=== PATIENT | female | born 1990 | race Two or more races ===

== ENCOUNTER 2022-04-13 10:49 | Emergency (ER) | payer BC ==
[~2022-04-13] VITALS: Ht 167.6 cm; Wt 49.9 kg
[2022-04-13] MEDS ORDERED: VITAMIN D310 MCG/1 M (11:21)
== END 2022-04-13 16:38 | disposition home or self-care (01) ==
LOC: ER 10:49
DX: R53.81 Other malaise (principal); L55.9 Sunburn, unspecified; R53.1 Weakness